=== PATIENT | male | born 1980 | race African-American/Black ===

== ENCOUNTER 2017-01-26 11:38 | Emergency (ER) | payer OTHER ==
[2017-01-26 11:57] LABS: Bilirubin Negative (Negative); Blood, Urine Negative (Negative); Glucose, Urine (Dipstick) Negative (Negative); Ketone, Urine Negative (Negative); Nitrite Negative (Negative); Protein, Urine (Dipstick) Negative (Neg-Trace)
[2017-01-26 11:59] LABS: Bacteria/HPF None Seen HPF (None Seen); Hyaline Casts/LPF 0-3 HYALINE CAST LPF (0-3 Hyaline); RBC/HPF 0-3 HPF (0-3); Squamous Epithelial None Seen HPF (0-3); WBC/HPF 0-3 HPF (0-3)
[2017-01-26 12:10] LABS: #Eosinphils 0.1 thou/uL (0.0-0.7); #Monocytes 0.5 thou/uL (0.11-0.59); #Neutrophils 2.1 thou/uL (1.40-6.50); %Eosinophils 1.8 % (0.0-10.0); %Lymphocytes 26.2 % (21.0-51.0); %Monocytes 14.4 % (0.0-10.0); Hematocrit 46.8 % (42.0-52.0); Mean Platelet Volume 7.2 fL (7.4-10.4); Red Blood Cell (RBC) Count 4.83 mill/uL (4.70-6.10); White Blood Cell (WBC) Count 3.6 thou/uL (4.8-10.8)
[2017-01-26 12:30] LABS: ALT (SGPT) 57 U/L (8-55); AST (SGOT) 29 U/L (5-34); Alkaline Phosphatase 73 U/L (40-150); Anion Gap 10 mmol/L (10-20); BUN (Urea Nitrogen) 10 mg/dL (8.9-20.6); Bilirubin, Total 1.1 mg/dL (0.2-1.2); Calc. Creatinine Clearance 0 mL/min (70-130); Calcium 9.5 mg/dL (7.8-10.44); Carbon Dioxide 30 mmol/L (22-29); Chloride 102 mmol/L (98-107); Estimated GFR-MDRD 71; Globulin 4.3 g/dL (2.4-3.5); Lipase 36 U/L (8-78); Protein, Total 8.5 g/dL (6.0-8.3)
[2017-01-26] MEDS ORDERED: Ketorolac Tromethamine 60 MG/2 ML VIAL ONE (15:22)
--- NOTE | 2017-01-26 15:24 | CT ---
CT ABDOMEN AND PELVIS NONCONSTRAST: Date: 01/26/17 HISTORY: Dysuria. Bilateral flank pain. FINDINGS: Each renal collecting system and ureter are decompressed without stone apparent. Urinary bladder is unremarkable. Lack of contrast limits evaluation for other abnormalities. No bowel obstruction or inflammation are apparent. IMPRESSION: No CT evidence of urinary tract obstruction or calcification. POS: [facility]
--- NOTE | 2017-01-26 16:35 | ULT ---
BILATERAL TESTICULAR ULTRASOUND WITH DOPPLER: ([place] scale, color flow, and spectral Doppler) Date: 01/26/17 HISTORY: 36-year-old male with testicular pain. FINDINGS: The right testis measures 4.6 x 2.2 x 3.7 cm. The left testis measures 4.0 x 2.0 x 3.4 cm. There is flow demonstrated to both testicles. No focal mass or microlithiasis is seen. No hydrocele is noted on either side. The right epididymis measures 2.9 x 1.0 cm. The left epididymis measures 1.4 x 1.6 cm. Increased yobany w is demonstrated to the left epididymis and testis and to the right epididymis. There are bilateral varicoceles, larger on the left. IMPRESSION: 1. Left epididymo-orchitis. 2. Right epididymitis. 3. Bilateral varicoceles, more prominent on the left. POS: [facility]
== END 2017-01-26 17:01 | disposition home or self-care (01) ==
LOC: ERS 11:38
DX: R30.0 Dysuria (principal)
CPT/HCPCS: 36415; 74176; 76870; 80053; 81003; 81015; 83690; 85025; 93976; 96372; J1885